=== PATIENT | male | born 1960 | race Caucasian/White ===

== ENCOUNTER 2017-12-17 05:34 | Observation (INO) | payer BC ==
[2017-12-17 06:04] LABS: Basophils # (A) 0.1 k/uL (0-0.2); Basophils % (A) 1 %; Eosinophils # (A) 0.2 k/uL (0-0.7); Eosinophils % (A) 2 %; HCT 44.6 % (39.0-53.0); HGB 15.6 gm/dL (13.0-17.5); Lymphocytes # (A) 2.3 k/uL (1.0-4.8); Lymphocytes % (A) 26 %; MCH 32.7 pg (25.0-35.0); MCV 93.3 fL (80.0-100.0); Mean Platelet Volume 6.5; Monocytes # (A) 0.4 k/uL (0-1.0); Monocytes % (A) 5 %; Neutrophils # (A) 5.8 k/uL (1.3-7.7); Neutrophils % (A) 64 %; Platelet Count 290 k/uL (150-450); RBC 4.78 m/uL (4.30-5.90); RDW 11.9 % (11.5-15.5)
[2017-12-17 06:13] LABS: Partial Thromboplastin Time 24.8 sec (22.0-30.0); Prothrombin Time 9.9 sec (9.0-12.0)
[2017-12-17 06:17] LABS: ALT 79 U/L (21-72); AST 57 U/L (17-59); Albumin 4.4 g/dL (3.5-5.0); Alkaline Phosphatase 120 U/L (38-126); Anion Gap 14 mmol/L; Blood Urea Nitrogen 11 mg/dL (9-20); Calcium 9.9 mg/dL (8.4-10.2); Carbon Dioxide 24 mmol/L (22-30); Chloride 104 mmol/L (98-107); Glucose 118 mg/dL (74-99); Magnesium 2.1 mg/dL (1.6-2.3); Potassium 4.5 mmol/L (3.5-5.1); Sodium 142 mmol/L (137-145); Total Bilirubin 0.5 mg/dL (0.2-1.3); Total Protein 7.3 g/dL (6.3-8.2)
[2017-12-17 06:28] LABS: Creatine Kinase 92 U/L (55-170)
[2017-12-17 06:41] LABS: Creatine Kinase MB 1.1 ng/mL (0.0-2.4); Troponin I <0.012 ng/mL (0.000-0.034)
--- NOTE | 2017-12-17 06:48 | ED ---
General Adult HPI - General Chief complaint: Chest Pain Stated complaint: chest pain,dizziness,headache Time Seen by Provider: 12/17/17 05:53 Source: patient, family, RN notes reviewed, old records reviewed Mode of arrival: ambulatory Limitations: no limitations - History of Present Illness Initial comments: This is a 57-year-old male patient. Patient multiple as pain, secondary patient complaining of vertigo. He states he woke with chest pain last night and have vertigo again this morning. Patient does have history of chronic chest pain right-sided secondary to prolonged benign bone tumor. Patient states he woke with chest pain last night and awoke with dizziness and spinning may try to get her bedding or the bathroom, both symptoms have persisted. He feels very uneasy when he walks and feels like his equilibrium is off. Patient also is complaining of chest pain - Related Data Home Medications Medication Instructions Recorded Confirmed Furosemide [Lasix] 40 mg PO DAILY 12/17/17 12/17/17 HYDROcodone/APAP 10-325MG [[place] 1 tab PO Q6HR PRN 12/17/17 12/17/17 10-325] Lisinopril 40 mg PO DAILY 12/17/17 12/17/17 Allergies Allergy/AdvReac Type Severity Reaction Status Date / Time No Known Allergies Allergy Verified 12/17/17 07:04 Review of Systems ROS Statement: Those systems with pertinent positive or pertinent negative responses have been documented in the HPI. ROS Other: All systems not noted in ROS Statement are negative. Past Medical History Past Medical History: Hypertension Additional Past Medical History / Comment(s): right lung mass, lower back pain History of Any Multi-Drug Resistant Organisms: None Reported Past Surgical History: Back Surgery, Tonsillectomy Additional Past Surgical History / Comment(s): 5th rib removed right side mass Past Psychological History: No Psychological Hx Reported Smoking Status: Current every day smoker Past Alcohol Use History: Occasional Past Drug Use History: None Reported General Exam Limitations: no limitations General appearance: alert, in no apparent distress Head exam: Present: atraumatic, normocephalic, normal inspection Eye exam: Present: normal appearance, PERRL, EOMI. Absent: scleral icterus, conjunctival injection, periorbital swelling ENT exam: Present: normal exam, mucous membranes moist Neck exam: Present: normal inspection. Absent: tenderness, meningismus, lymphadenopathy Respiratory exam: Present: normal lung sounds bilaterally. Absent: respiratory distress, wheezes, rales, rhonchi, stridor Cardiovascular Exam: Present: regular rate, normal rhythm, normal heart sounds. Absent: systolic murmur, diastolic murmur, rubs, gallop, clicks GI/Abdominal exam: Present: soft, normal bowel sounds. Absent: distended, tenderness, guarding, rebound, rigid Extremities exam: Present: normal inspection, full ROM, normal capillary refill. Absent: tenderness, pedal edema, joint swelling, calf tenderness Back exam: Present: normal inspection Neurological exam: Present: alert, oriented X3, CN II-XII intact Psychiatric exam: Present: normal affect, normal mood Skin exam: Present: warm, dry, intact, normal color. 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 ] Respiratory 18 18 Rate Blood Pressure 219/109 152/80 O2 Sat by Pulse 98 96 Oximetry EKG Findings - EKG Comments: EKG Findings:: EKG shows normal sinus rhythm rate of 82, VT 174, QRS 90, QTc 441 Medical Decision Making - Lab Data Result diagrams: 12/17/17 05:40 12/17/17 05:40 Lab Results 12/17/17 12/17/17 12/17/17 Range/Units 05:40 05:40 05:40 WBC 9.0 (3.8-10.6) k/uL RBC 4.78 (4.30-5.90) m/uL Hgb 15.6 (13.0-17.5) gm/dL Hct 44.6 (39.0-53.0) % MCV 93.3 (80.0-100.0) fL MCH 32.7 (25.0-35.0) pg MCHC 35.0 (31.0-37.0) g/dL RDW 11.9 (11.5-15.5) % Plt Count 290 (150-450) k/uL Neutrophils % 64 % Lymphocytes % 26 % Monocytes % 5 % Eosinophils % 2 % Basophils % 1 % Neutrophils # 5.8 (1.3-7.7) k/uL Lymphocytes # 2.3 (1.0-4.8) k/uL Monocytes # 0.4 (0-1.0) k/uL Eosinophils # 0.2 (0-0.7) k/uL Basophils # 0.1 (0-0.2) k/uL PT (9.0-12.0) sec INR (<1.2) APTT (22.0-30.0) sec Sodium 142 (137-145) mmol/L Potassium 4.5 (3.5-5.1) mmol/L Chloride 104 (98-107) mmol/L Carbon Dioxide 24 (22-30) mmol/L Anion Gap 14 mmol/L BUN 11 (9-20) mg/dL Creatinine 0.77 (0.66-1.25) mg/dL Est GFR (CKD-EPI)AfAm >90 (>60 ml/min/1.73 sqM) Est GFR (CKD-EPI)NonAf >90 (>60 ml/min/1.73 sqM) Glucose 118 H (74-99) mg/dL Calcium 9.9 (8.4-10.2) mg/dL Magnesium 2.1 (1.6-2.3) mg/dL Total Bilirubin 0.5 (0.2-1.3) mg/dL AST 57 (17-59) U/L ALT 79 H (21-72) U/L Alkaline Phosphatase 120 (38-126) U/L Total Creatine Kinase 92 (55-170) U/L CK-MB (CK-2) 1.1 (0.0-2.4) ng/mL CK-MB (CK-2) Rel Index 1.2 Troponin I <0.012 (0.000-0.034) ng/mL Total Protein 7.3 (6.3-8.2) g/dL Albumin 4.4 (3.5-5.0) g/dL 12/17/17 Range/Units 05:40 WBC (3.8-10.6) k/uL RBC (4.30-5.90) m/uL Hgb (13.0-17.5) gm/dL Hct (39.0-53.0) % MCV (80.0-100.0) fL MCH (25.0-35.0) pg MCHC (31.0-37.0) g/dL RDW (11.5-15.5) % Plt Count (150-450) k/uL Neutrophils % % Lymphocytes % % Monocytes % % Eosinophils % % Basophils % % Neutrophils # (1.3-7.7) k/uL Lymphocytes # (1.0-4.8) k/uL Monocytes # (0-1.0) k/uL Eosinophils # (0-0.7) k/uL Basophils # (0-0.2) k/uL PT 9.9 (9.0-12.0) sec INR 1.0 (<1.2) APTT 24.8 (22.0-30.0) sec Sodium (137-145) mmol/L Potassium (3.5-5.1) mmol/L Chloride (98-107) mmol/L Carbon Dioxide (22-30) mmol/L Anion Gap mmol/L BUN (9-20) mg/dL Creatinine (0.66-1.25) mg/dL Est GFR (CKD-EPI)AfAm (>60 ml/min/1.73 sqM) Est GFR (CKD-EPI)NonAf (>60 ml/min/1.73 sqM) Glucose (74-99) mg/dL Calcium (8.4-10.2) mg/dL Magnesium (1.6-2.3) mg/dL Total Bilirubin (0.2-1.3) mg/dL AST (17-59) U/L ALT (21-72) U/L Alkaline Phosphatase (38-126) U/L Total Creatine Kinase (55-170) U/L CK-MB (CK-2) (0.0-2.4) ng/mL CK-MB (CK-2) Rel Index Troponin I (0.000-0.034) ng/mL Total Protein (6.3-8.2) g/dL Albumin (3.5-5.0) g/dL Critical Care Time Critical Care Time: Yes Total Critical Care Time: 31 Disposition Clinical Impression: Chest pain Disposition: ADMITTED IP TO THIS HOSP Condition: Fair Instructions: Chest Pain (ED) Is patient prescribed a controlled substance at d/c from ED?: No Referrals: Florina Camacho MD [Primary Care Provider] - 1-2 days
[2017-12-17] MEDS ORDERED: RX INFO: IV CONTRAST WAS GIVEN 1 EACH MISC MISCELLANE PRN (07:03)
--- NOTE | 2017-12-17 07:03 | XR ---
EXAM: XR Chest, 2 Views CLINICAL HISTORY: 57-year-old male with chest pain Reason: Chest Pain TECHNIQUE: Frontal and lateral views of the chest. COMPARISON: No relevant prior studies available. FINDINGS: Lungs: There is opacification involving the right middle lobe with questionable subtle right perihilar opacities noted in the lateral projection. Pleural space: No large pleural effusion suggested. No pneumothorax. Heart: Unremarkable. No cardiomegaly. Mediastinum: As above. The left mediastinum is unremarkable. Bones/joints: Degenerative changes of the thoracic spine. Other findings: There is a 3.5 cm long tubular density with a diameter of 2 mm overlying the mid thoracic vertebral bodies as of uncertain clinical significance. IMPRESSION: There is opacification involving the right middle lobe with questionable subtle right perihilar opacities noted in the lateral projection. This is of uncertain chronicity and primary considerations include an underlying mass lesion versus infection. Please correlate clinically. No large pleural effusion suggested in the lateral projection.
--- NOTE | 2017-12-17 07:47 | CT ---
EXAMINATION TYPE: CT brain wo con DATE OF EXAM: 12/17/2017 COMPARISON: NONE HISTORY: dizziness CT DLP: 1201 mGycm. Automated Exposure Control for Dose Reduction was Utilized. TECHNIQUE: CT scan of the head is performed without contrast. FINDINGS: There is no acute intracranial hemorrhage, mass effect, or midline shift identified. No s uspicious extra-axial fluid collection. Mild atherosclerosis is seen of the intracranial vasculature. The ventricles and sulci are within normal limits in size. 8mm mucosal retention cyst is seen withi n the right maxillary sinus. The globes are intact and the remaining visualized sinuses are clear. IMPRESSION: No acute intracranial process.
[2017-12-17] MEDS ORDERED: HEPARIN SODIUM,PORCINE 5,000 UNIT/ML 1 ML VIAL IV PRN (07:49)
[2017-12-17] MEDS ORDERED: ASPIRIN 81 MG PO STA (07:49)
[2017-12-17] MEDS ORDERED: HEPARIN SODIUM,PORCINE 5,000 UNIT/ML 1 ML VIAL IV ONE (07:49)
[2017-12-17] MEDS ORDERED: NITROGLYCERIN SL TABS 0.4 MG TAB SUBLINGUAL PRN (07:49)
[2017-12-17] MEDS ORDERED: cloNIDine HCL 0.1 MG TAB PO PRN (07:55)
--- NOTE | 2017-12-17 07:55 | CT ---
EXAMINATION TYPE: CT angio chest DATE OF EXAM: 12/17/2017 COMPARISON: Biopsy dated 09/29/2011. HISTORY: Chest pain and dizziness CT DLP: 543 mGycm. Automated Exposure Control for Dose Reduction was Utilized. CONTRAST: CTA scan of the thorax is performed with IV Contrast, patient injected with 100 mL of Isovue 370, pul monary embolism protocol. MIP Images are created on CT scanner and reviewed. FINDINGS: LUNGS: Small blebs and atelectasis are seen adjacent to the known invasive right chest wall mass with mass effect upon the right lung resulting in volume loss and mass effect upon the right atrium. Mult ifocal subsegmental atelectasis is seen with no pulmonary mass identified. No focal consolidation ple ural effusion or pulmonary vascular congestion are seen. The tracheobronchial tree is patent. MEDIASTINUM: There is satisfactory enhancement of the pulmonary artery and its branches, there is no CT evidence for pulmonary embolism. There are no greater than 1 cm hilar or mediastinal lymph nodes. No cardiomegaly or pericardial effusion is seen. OTHER: Approximately 10.5 x 16.7 cm peripherally and partially centrally calcified right chest wall m ass appearing to be arising from the fifth right rib laterally demonstrates osseous destruction and i ntrathoracic invasion with mass effect upon the right atrium. Additionally there is aggressive appear ing focal pleural thickening with right fourth posterior rib lysis and expansion of the proximal post erior fourth right rib. Posterior fifth right rib is absent, also likely from pathologic lysis. Liver is diffusely hypoattenuated most commonly related to hepatic steatosis. IMPRESSION: 1. No evidence of pulmonary embolus. 2. Large right chest wall mass measuring up to 16.7 cm with mass effect upon the right lung and media stinum, particularly the right atrium. There is additionally osseous lysis and multifocal pleural thi ckening. 2. Multifocal atelectasis without CT findings to suggest pneumonia. 3. Hepatic steatosis.
[2017-12-17] MEDS ORDERED: HEPARIN SODIUM,PORCINE/D5W PMX 25,000 UNIT in DEXTROSE/WATER 1 500ML.BAG IV SCH (08:00)
[2017-12-17] MEDS: MORPHINE SULFATE 4 MG/ML SYRINGE IV PRN ×2 (08:46→09:34)
[2017-12-17] MEDS ORDERED: NICOTINE 21MG/24HR PATCH TRANSDERM STA (08:54)
[2017-12-17 09:23] VITALS: RESP 18
[2017-12-17] MEDS ORDERED: HYDROcodone/APAP 10-325MG 1 EACH TAB PO PRN (09:46)
[2017-12-17] MEDS ORDERED: FUROSEMIDE 40 MG TAB PO SCH (10:00)
[2017-12-17] MEDS ORDERED: LISINOPRIL 20 MG TAB PO SCH (10:00)
[2017-12-17] MEDS ORDERED: MORPHINE ORAL SOLN 10 MG/5 ML CUP PO PRN (11:08)
--- NOTE | 2017-12-17 12:11 | P.HPIM ---
History of Present Illness H&P Date: 12/17/17 Chief Complaint: Dizziness, chest pain This is a 57-year-old male patient of Dr. 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 Patient gives history that he got up out of bed around 11 PM last night to go to bathroom and was very lightheaded without dizziness. He had hang onto furniture /wall in order to walk. He got up again at 3:30 in the morning and symptoms were even worse. He denies any recent upper respiratory infection, ear infection, bronchitis. He states he has chronic right-sided chest pain related to the fibrodysplasia area and he relates that Dr. Camacho was concerned a couple years ago that this mass in his chest/rib was causing pressure on his heart. He has also been having a "little" pain in the left chest that initially was not concerned about this. Patient states he has been taking his blood pressure medications as directed. He came into [facility] emergency center for evaluation. His initial blood pressure was 219/109. EKG was in normal sinus. CBC, electrolytes were within normal limits. Creatinine was 0.77. ALT 79. Glucose was 118 and patient has no history of diabetes. Troponin was negative at 0.012. CT of the brain was negative. CTA of the chest was negative for pulmonary embolism. There is a large right chest wall mass measuring up to 16.7 cm with mass effect upon the right lung and mediastinum particular in the right atrium. There is additional osseous lysis and multifocal pleural thickening. Multifocal atelectasis without CT finding pneumonia. Hepatic steatosis. Patient was started on full strength aspirin, heparin drip, morphine and sublingual nitroglycerin and placed in the observation unit where a consult was placed with cardiology. Regarding hypertension, clonidine was added as needed. Patient also has significant history for smoking greater than 2 packs per day for more than 30 years and also drinking a pint of liquor per day for more than 30 years. He does have a family history of brother with [place] in his 30s and his father at age 63 from a myocardial infarction. Review of Systems All systems: negative Constitutional: Denies anorexia, Denies chills, Denies fatigue, Denies fever, Denies poor appetite, Denies weight loss Eyes: denies blurred vision, denies pain Ears, nose, mouth and throat: Denies dysphagia, Denies headache, Denies mouth pain, Denies sore throat, Denies vertigo Cardiovascular: Reports chest pain, Reports lightheadedness, Denies decreased exercise tolerance, Denies dyspnea on exertion, Denies edema, Denies leg edema, Denies shortness of breath, Denies syncope Respiratory: Denies cough, Denies cough with sputum, Denies dyspnea, Denies excessive sputum, Denies hemoptysis, Denies home oxygen, Denies wheezing Gastrointestinal: Denies abdominal pain, Denies diarrhea, Denies nausea, Denies vomiting Genitourinary: Denies dysuria Musculoskeletal: Reports gait dysfunction, Denies frequent falls, Denies myalgias Integumentary: Denies pruritus, Denies rash Neurological: Denies numbness, Denies weakness Psychiatric: Denies anxiety, Denies depression Endocrine: Denies fatigue, Denies weight change Past Medical History Past Medical History: Hypertension Additional Past Medical History / Comment(s): Fibrodysplasia of the right affecting his right fifth rib with mass at T5 which is been surgically removed and a second mass within his chest wall, chronic lumbar pain with bilateral lower extremity neuropathy, diverticulitis History of Any Multi-Drug Resistant Organisms: None Reported Past Surgical History: Back Surgery, Tonsillectomy Additional Past Surgical History / Comment(s): 1976 5th rib removed in 1975 for fibrodysplasia, mass removed from T5 in 2007 that was causing deterioration of the bone due to fibrodysplasia, left ring finger surgery with pins Past Anesthesia/Blood Transfusion Reactions: No Reported Reaction Past Psychological History: No Psychological Hx Reported Smoking Status: Current every day smoker Past Alcohol Use History: Abuse, Heavy Additional Past Alcohol Use History / Comment(s): Patient is a smoker of greater than 2 packs per day for more than 30 years. He drinks a pint of alcohol every day for more than 30 years. He denies any marijuana or street drug use. He is and lives at home with his . Past Drug Use History: None Reported - Past Family History Father Family Medical History: Coronary Artery Disease (CAD), Myocardial Infarction ([place] ) Additional Family Medical History / Comment(s): Father at age 63 from myocardial infarction. Brother(s) Family Medical History: Myocardial Infarction ([place]) Additional Family Medical History / Comment(s): Patient has 1 brother that had [place] in his 30s. Daughter(s) Family Medical History: Hypertension Mother Family Medical History: Hypertension Additional Family Medical History / Comment(s): Mother is alive with hypertension and otherwise no major medical problems. Medications and Allergies Home Medications Medication Instructions Recorded Confirmed Type Furosemide [Lasix] 40 mg PO DAILY 12/17/17 12/17/17 History HYDROcodone/APAP 10-325MG [[place] 1 tab PO Q6HR PRN 12/17/17 12/17/17 History 10-325] Lisinopril 40 mg PO DAILY 12/17/17 12/17/17 History Allergies Allergy/AdvReac Type Severity Reaction Status Date / Time No Known Allergies Allergy Verified 12/17/17 07:04 Physical Exam Vitals: Vital Signs Temp Pulse Pulse Pulse Resp BP BP 12/17/17 09:20 97.9 F 70 18 180/84 12/17/17 08:38 98.0 F 71 16 168/79 12/17/17 07:07 60 18 152/80 12/17/17 05:50 79 12/17/17 05:38 97.7 F 94 18 219/109 Pulse Ox 12/17/17 09:20 97 12/17/17 08:38 98 12/17/17 07:07 96 12/17/17 05:50 12/17/17 05:38 98 Intake and Output 12/16/17 12/17/17 12/17/17 22:59 06:59 14:59 Other: Voiding Method Toilet Weight 122.47 kg 130.4 kg Gen: This is a morbidly obese 57-year-old male patient. He is in bed and appears to be comfortable and in no acute distress. HEENT: Head is atraumatic, normocephalic. Pupils equal, round. Sclerae is anicteric. NECK: Supple. No JVD. No lymphadenopathy. No thyromegaly. LUNGS: Clear to auscultation. No wheezes or rhonchi. No intercostal retractions. HEART: Regular rate and rhythm. No murmur. ABDOMEN: Morbidly obese. Soft. Bowel sounds are present. No masses. No tenderness. EXTREMITIES: No pedal edema. No calf tenderness. NEUROLOGICAL: Patient is awake, alert and oriented x3. Cranial nerves 2 through 12 are grossly intact. Results CBC & Chem 7: 12/17/17 05:40 12/17/17 05:40 Labs: Abnormal Lab Results - Last 24 Hours (Table) 12/17/17 Range/Units 05:40 Glucose 118 H (74-99) mg/dL ALT 79 H (21-72) U/L Thrombosis Risk Factor Assmnt - DVT/VTE Prophylaxis DVT/VTE Prophylaxis: Pharmacologic Prophylaxis ordered - Choose All That Apply Each Factor Represents 1 point: Age 41-60 years, Obesity (BMI >25) Other Risk Factors: No Other congenital or acquired thrombophilia - If yes, enter type in comment: No Thrombosis Risk Factor Assessment Total Risk Factor Score: 2 Thrombosis Risk Factor Assessment Level: Low Risk Assessment and Plan Plan: 1. Lightheadedness along with left-sided chest pain that is new. Patient denies feeling dizzy during this. Initial troponin is negative. Echocardiogram will be ordered, serial troponins, cardiology consult. Patient is currently on heparin drip and full strength aspirin. Lipid panel ordered for morning. 2. History of fibroid dysplasia status post removal of the right fifth rib and removal of a mass at the T5 region with a known large mass measuring up to 16.7 cm along the right lung and mediastinum. Patient has been rejected by [facility] for any surgical intervention. 3. Uncontrolled hypertension. Patient started on clonidine along with his Lasix and lisinopril. 4. Alcohol abuse disorder. Monitor for DTs. Anticipate discharge in the next 24 hours. 5. Tobacco use and dependence. Discussed need for smoking cessation. Patient placed on nicotine patch. 6. Chronic back pain and bilateral lower extremity neuropathy. 7. DVT prophylaxis. Patient is on heparin drip. 8. GI prophylaxis. Pepcid. Patient placed as an observation status. Discharge plan: Return home Impression and plan of care have been directed as dictated by the signing physician. Ai Ibarra nurse practitioner acting as scribe for signing physician.
[2017-12-17 12:40] LABS: Creatine Kinase 83 U/L (55-170)
[2017-12-17 12:52] LABS: Creatine Kinase MB 1.1 ng/mL (0.0-2.4); Troponin I <0.012 ng/mL (0.000-0.034)
--- NOTE | 2017-12-17 14:23 | ECHOF ---
Referral Reason:lvfunction MEASUREMENTS -------- HEIGHT: 175.3 cm WEIGHT: 130.2 kg BP: RVIDd: 2.7 cm (< 3.3) IVSd: 1.3 cm (0.6 - 1.1) LVIDd: 4.6 cm (3.9 - 5.3) LVPWd: 1.3 cm (0.6 - 1.1) IVSs: 1.6 cm LVIDs: 3.7 cm LVPWs: 1.5 cm LA Diam: 3.0 cm (2.7 - 3.8) Ao Diam: 3.8 cm (2.0 - 3.7) AV Cusp: 2.0 cm (1.5 - 2.6) LA Diam: 3.8 cm (2.7 - 3.8) MV EXCURSION: 20.607 mm (> 18.000) MV EF SLOPE: 143 mm/s (70 - 150) EPSS: 0.8 cm MV E Jean-Paul: 0.66 m/s MV DecT: 273 ms MV A Jean-Paul: 0.59 m/s MV E/A Ratio: 1.11 RAP: 5.00 mmHg RVSP: 10.99 mmHg FINDINGS -------- Sinus rhythm. Morbid Obesity The left ventricular size is normal. There is mild concentric left ventricular hypertrophy. Overa ll left ventricular systolic function is low-normal with, an EF between 50 - 55 %. Inferior Hypokin esis The right ventricle is normal in size. The left atrial size is normal. The right atrial size is normal. 5.0mg OF [place] UTLIZED: 2 OR MORE WALL SEGMENTS NOT VISUALIZED. The aortic valve is trileaflet, and appears structurally normal. No aortic stenosis or regurgitation. Mild mitral regurgitation is present. Mild tricuspid regurgitation present. There is no evidence of pulmonary hypertension. The right v entricular systolic pressure, as measured by Doppler, is 10.99mmHg. Trace/mild (physiologic) pulmonic regurgitation. The aortic root size is normal. There is no pericardial effusion. CONCLUSIONS -------- 1. Morbid Obesity 2. The left ventricular size is normal. 3. There is mild concentric left ventricular hypertrophy. 4. Overall left ventricular systolic function is low-normal with, an EF between 50 - 55 %. 5. Inferior Hypokinesis 6. 5.0mg OF [place] UTLIZED: 2 OR MORE WALL SEGMENTS NOT VISUALIZED. 7. The aortic valve is trileaflet, and appears structurally normal. No aortic stenosis or regurgitati on. 8. Mild mitral regurgitation is present. 9. Mild tricuspid regurgitation present. 10. There is no evidence of pulmonary hypertension. 11. The right ventricular systolic pressure, as measured by Doppler, is 10.99mmHg. 12. Trace/mild (physiologic) pulmonic regurgitation. 13. The aortic root size is normal. 14. There is no pericardial effusion. [employer] WORKER: Nelly Mccormack RDCS
[2017-12-17 16:18] VITALS: BP 158/96; PULSE 74; TEMP 97.9
[2017-12-17 16:36] LABS: Creatine Kinase 84 U/L (55-170)
[2017-12-17 16:49] LABS: Troponin I <0.012 ng/mL (0.000-0.034)
[2017-12-18] MEDS ORDERED: ASPIRIN 325 MG TAB PO SCH (09:00)
== END 2017-12-17 17:15 | disposition left against medical advice (07) ==
LOC: EC 05:34 → 3OBS 07:49
PROVIDERS: ADMIT Internal Medicine Geriatric Medicine; ATTEND Internal Medicine Geriatric Medicine
DX: R07.89 Other chest pain (principal); R42 Dizziness and giddiness; I10 Essential (primary) hypertension; M85.08 Fibrous dysplasia (monostotic), other site; R91.8 Other nonspecific abnormal finding of lung field; G89.29 Other chronic pain; M54.5 Low back pain; G57.93 Unspecified mononeuropathy of bilateral lower limbs; K57.90 Diverticulosis of intestine, part unspecified, without perforation or abscess without bleeding; F17.200 Nicotine dependence, unspecified, uncomplicated; J98.11 Atelectasis; K76.0 Fatty (change of) liver, not elsewhere classified; F17.210 Nicotine dependence, cigarettes, uncomplicated; F10.10 Alcohol abuse, uncomplicated; E66.01 Morbid (severe) obesity due to excess calories; Z68.41 Body mass index [BMI] 40.0-44.9, adult; Z82.49 Family history of ischemic heart disease and other diseases of the circulatory system; Z79.899 Other long term (current) drug therapy
CPT/HCPCS: 99291 ×2; 96374 ×2; 96375 ×2; 96376 ×3; 36415; 93005; 93306; 80053; 82550; 82553; 83735; 84484; 85025; 85610; 85730; 71046; 70450; 71275; G0378; S4990; J2270; J1644 ×2; Q9950; Q9967

== ENCOUNTER 2019-08-21 00:43 | Emergency (ER) | payer BC ==
[2019-08-21 00:53] VITALS: TEMP 97.9
[2019-08-21] MEDS ORDERED: HYDROmorphone 1 MG/ML 1 ML SYRINGE IVP STA ×4 (01:43→05:50)
[2019-08-21] MEDS ORDERED: LABETALOL 5 MG/ML VIAL MDV IVP STA (01:44)
[2019-08-21 02:08] LABS: Basophils # (A) 0.4 k/uL (0-0.2); Basophils % (A) 3 %; Eosinophils # (A) 0.3 k/uL (0-0.7); Eosinophils % (A) 2 %; HCT 47.3 % (39.0-53.0); Lymphocytes # (A) 3.4 k/uL (1.0-4.8); Lymphocytes % (A) 25 %; MCH 31.8 pg (25.0-35.0); MCHC 33.8 g/dL (31.0-37.0); Monocytes # (A) 0.7 k/uL (0-1.0); Monocytes % (A) 5 %; Neutrophils # (A) 8.9 k/uL (1.3-7.7); Neutrophils % (A) 64 %; Platelet Count 311 k/uL (150-450); RBC 5.03 m/uL (4.30-5.90); WBC 13.9 k/uL (3.8-10.6)
[2019-08-21 02:22] LABS: ALT 51 U/L (4-49); AST 36 U/L (17-59); African American GFR (CKD) >90 (>60 ml/min/1.73 sqM); Albumin 4.2 g/dL (3.5-5.0); Alkaline Phosphatase 115 U/L (38-126); Anion Gap 11 mmol/L; Blood Urea Nitrogen 13 mg/dL (9-20); Calcium 9.4 mg/dL (8.4-10.2); Carbon Dioxide 19 mmol/L (22-30); Chloride 107 mmol/L (98-107); Glucose 91 mg/dL (74-99); Magnesium 2.1 mg/dL (1.6-2.3); Non-African American GFR(CKD) >90 (>60 ml/min/1.73 sqM); Potassium 4.9 mmol/L (3.5-5.1); Sodium 137 mmol/L (137-145); Total Bilirubin 0.6 mg/dL (0.2-1.3); Total Protein 7.4 g/dL (6.3-8.2)
[2019-08-21] MEDS ORDERED: methylPREDNISolone SOD SUCCI 125 MG/2 ML VIAL IV STA (02:54)
--- NOTE | 2019-08-21 03:06 | CT ---
EXAMINATION TYPE: CT angio abd aorta w/Runoff DATE OF EXAM: 08/21/2019 COMPARISON: None HISTORY: Patient presents with bilateral leg pain and numbness. CT DLP: 3494.2 mGycm Automated exposure control for dose reduction was used. CONTRAST: Performed with IV Contrast, patient injected with 100mL mL of Isovue 370. Multiple axial sections were obtained from the thoracic inlet to the mid pelvis without contrast. Mul tiple axial sections were obtained from the aortic arch to the bottom of the feet with intravenous co ntrast. There are 3-D post processed images. There is a 13 x 8 cm mass involving the anterior right midlung field extending through the chest wall . There is peripheral calcification and patchy internal calcification. Heart size is normal. There is no pericardial effusion. There no hilar masses. There is no mediastina l adenopathy. Thoracic aorta appears intact without evidence of aneurysm or dissection. There is no h emodynamic stenosis. There is arterial flow in the celiac artery and superior mesenteric artery which appear widely patent . There is bilateral patency of the renal arteries which appear fairly normal. There is no evidence o f renal artery stenosis. There is arterial flow in the iliac and femoral arteries bilaterally. There is minimal plaque formati on. I see no evidence of iliac artery hemodynamic stenosis. There is bilateral arterial flow in the s uperficial femoral and the profunda femoris arteries. There is arterial flow bilaterally in the popli teal arteries. I see no evidence of femoral or popliteal artery hemodynamic stenosis. There is bilateral arterial flow in the tibial arteries. There is arterial flow in the anterior and p osterior tibial arteries bilaterally. There is peroneal artery flow. There is arterial flow at the ankles involving both posterior tibial arteries. There is bilateral art erial flow in the dorsalis pedis arteries. Bladder distends smoothly. There are numerous sigmoid diverticula without evidence of diverticulitis. Appendix appears normal. There is no evidence of a bowel obstruction. There is no mesenteric edema. There is no ascites or free air. Thoracic and lumbar vertebra have normal alignment. There is no compression fracture. There is some s purring in the thoracic spine. IMPRESSION: Negative CT angiogram of the chest abdomen and pelvis with runoff. No evidence of any hemodynamic colton nosis. No evidence of arterial aneurysm or dissection. There is bilateral arterial flow in the anteri or and posterior tibial arteries at the ankles. Colonic diverticulosis without diverticulitis. Normal appendix. Large calcified right anterior chest wall mass extending into the right middle lobe has peripheral fa t density. This has soft tissue central density. Clinical significance and origin is not clear. This is most likely arising from the chest wall and not from the lung. Mass appears to show benign behavio r with stable appearance compared to CT scan of 12/17/2017.
[2019-08-21 03:17] LABS: Appearance,Urine Clear (Clear); Bilirubin,Urine Negative (Negative); Blood,Urine Negative (Negative); Color,Urine Yellow; Glucose,Urine (UA) Negative (Negative); Ketones,Urine Negative (Negative); Leukocyte Esterase,Urine Negative (Negative); Nitrite,Urine Negative (Negative); PH, Urine 5.5 (5.0-8.0); Protein,Urine Negative (Negative); Specific Gravity,Urine 1.045 (1.001-1.035); Urobilinogen,Urine <2.0 mg/dL (<2.0)
[2019-08-21] MEDS ORDERED: DIAZEPAM 5 MG/ML 2 ML INJ IVP STA (03:40)
--- NOTE | 2019-08-21 05:19 | ED ---
General Adult HPI - General Chief complaint: Extremity Injury, Lower Stated complaint: Bilateral Leg Numbness Time Seen by Provider: 08/21/19 00:58 Source: patient, family Mode of arrival: wheelchair Limitations: no limitations - History of Present Illness Initial comments: This patient is a 59-year-old man with history of chronic mid to low back pain. The patient states that he had worsening of the pain starting around 9 PM. The patient states he was feeling a little different from last time and that it seemed to worsen with walking. He states that after that he also felt like he lost strength is bilateral legs. Patient denies numbness or saddle anesthesia. He states that he has not had any change in bladder or bowel function. The patient did have an MRI at [facility] where his surgeon was and he was told that there was no further surgical intervention. No fever or chills. No history of IVDA. -: hour(s) Location: back, left, right, lower extremity Radiation: distal Quality: aching Consistency: constant Improves with: none Worsens with: movement Associated Symptoms: weakness - Related Data Home Medications Medication Instructions Recorded Confirmed Furosemide [Lasix] 40 mg PO DAILY 12/17/17 12/17/17 HYDROcodone/APAP 10-325MG [[place] 1 tab PO Q6HR PRN 12/17/17 12/17/17 10-325] Lisinopril 40 mg PO DAILY 12/17/17 12/17/17 Allergies Allergy/AdvReac Type Severity Reaction Status Date / Time No Known Allergies Allergy Verified 08/21/19 00:53 Review of Systems ROS Statement: Those systems with pertinent positive or pertinent negative responses have been documented in the HPI. ROS Other: All systems not noted in ROS Statement are negative. Constitutional: Denies: fever, chills Respiratory: Denies: cough, dyspnea Cardiovascular: Denies: chest pain, palpitations, edema Gastrointestinal: Denies: abdominal pain, nausea, vomiting, diarrhea, constipation Genitourinary: Denies: dysuria, hematuria, testicular pain Musculoskeletal: Reports: as per HPI, back pain Skin: Denies: rash Neurological: Reports: weakness (Bilateral lower extremities). Denies: headache, numbness, paresthesias Past Medical History Past Medical History: Hypertension Additional Past Medical History / Comment(s): right lung mass, lower back pain History of Any Multi-Drug Resistant Organisms: None Reported Past Surgical History: Back Surgery, Tonsillectomy Additional Past Surgical History / Comment(s): 5th rib removed right side mass Past Anesthesia/Blood Transfusion Reactions: No Reported Reaction Past Psychological History: No Psychological Hx Reported Smoking Status: Current every day smoker Past Alcohol Use History: Occasional Past Drug Use History: None Reported - Past Family History Father Family Medical History: Coronary Artery Disease (CAD), Myocardial Infarction (NH) Additional Family Medical History / Comment(s): Father at age 63 from myocardial infarction. Brother(s) Family Medical History: Myocardial Infarction (NH) Additional Family Medical History / Comment(s): Patient has 1 brother that had NH in his 30s. Daughter(s) Family Medical History: Hypertension Mother Family Medical History: Hypertension Additional Family Medical History / Comment(s): Mother is alive with hyperte nsion and otherwise no major medical problems. General Exam Limitations: no limitations General appearance: alert, in no apparent distress Head exam: Present: atraumatic, normocephalic Eye exam: Present: normal appearance. Absent: scleral icterus, conjunctival injection Neck exam: Present: normal inspection. Absent: tenderness Respiratory exam: Present: normal lung sounds bilaterally. Absent: respiratory distress, wheezes, rales, rhonchi, stridor Cardiovascular Exam: Present: regular rate, normal rhythm, normal heart sounds. Absent: systolic murmur, diastolic murmur, rubs, gallop GI/Abdominal exam: Present: soft. Absent: distended, tenderness, guarding, rebound, mass, pulsatile mass Extremities exam: Present: normal inspection, normal capillary refill, other (Palpation of the bilateral dorsalis pedis pulses seems diminished.). Absent: tenderness, pedal edema Back exam: Present: normal inspection, paraspinal tenderness, vertebral tenderness. Absent: CVA tenderness (R), CVA tenderness (L) Neurological exam: Present: alert, motor sensory deficit (There is decreased motor symmetrically to the bilateral lower extremities), reflexes normal Skin exam: Present: warm, dry, intact, normal color. Absent: rash Course Vital Signs 08/21/19 08/21/19 08/21/19 00:50 02:26 02:30 Temperature 97.9 F Pulse Rate 89 76 Respiratory 20 18 Rate Blood Pressure 171/85 157/76 Blood Pressure 170/87 [Left Arm] Blood Pressure 181/89 [Right Arm] O2 Sat by Pulse 97 99 Oximetry 08/21/19 08/21/19 08/21/19 02:41 03:02 03:44 Temperature Pulse Rate 75 74 75 Respiratory 20 18 18 Rate Blood Pressure 158/83 154/79 157/79 Blood Pressure [Left Arm] Blood Pressure [Right Arm] O2 Sat by Pulse 97 96 95 Oximetry 08/21/19 08/21/19 04:41 06:05 Temperature Pulse Rate 71 90 Respiratory 18 20 Rate Blood Pressure 170/89 160/94 Blood Pressure [Left Arm] Blood Pressure [Right Arm] O2 Sat by Pulse 97 100 Oximetry Medical Decision Making - Medical Decision Making Patient is a 59-year-old man with chronic low back pain. On the initial exam, there was question whether the bilateral dorsalis pedis pulses were decreased and the patient was not giving satisfactory strength exam to the bilateral lower extremities, therefore the CT angiogram ordered and does reveal that there is good distal flow. The patient is also given analgesia, and was having significant improvement. Following analgesic he is able to perform the strength exam to 5 out of 5 strength bilaterally. He also was able to support her weight and take steps at bedside. I had been suggesting admission to have MRI, the patient states that he did recently have woman was told that there was no surgical intervention that would help him. The patient did request to go home following analgesia and as he is able to bear weight and walk this does seem acceptable. We discussed signs and symptoms of cauda equina and other back emergencies and he'll return should any these develop or if he is worse in anyway. - Lab Data Result diagrams: 08/21/19 01:53 08/21/19 01:53 Lab Results 08/21/19 08/21/19 08/21/19 Range/Units 01:53 01:53 01:53 WBC 13.9 H (3.8-10.6) k/uL RBC 5.03 (4.30-5.90) m/uL Hgb 16.0 (13.0-17.5) gm/dL Hct 47.3 (39.0-53.0) % MCV 94.0 (80.0-100.0) fL MCH 31.8 (25.0-35.0) pg MCHC 33.8 (31.0-37.0) g/dL RDW 12.0 (11.5-15.5) % Plt Count 311 (150-450) k/uL Neutrophils % 64 % Lymphocytes % 25 % Monocytes % 5 % Eosinophils % 2 % Basophils % 3 % Neutrophils # 8.9 H (1.3-7.7) k/uL Lymphocytes # 3.4 (1.0-4.8) k/uL Monocytes # 0.7 (0-1.0) k/uL Eosinophils # 0.3 (0-0.7) k/uL Basophils # 0.4 H (0-0.2) k/uL D-Dimer 0.27 (<0.60) mg/L FEU Sodium 137 (137-145) mmol/L Potassium 4.9 (3.5-5.1) mmol/L Chloride 107 (98-107) mmol/L Carbon Dioxide 19 L (22-30) mmol/L Anion Gap 11 mmol/L BUN 13 (9-20) mg/dL Creatinine 0.79 (0.66-1.25) mg/dL Est GFR (CKD-EPI)AfAm >90 (>60 ml/min/1.73 sqM) Est GFR (CKD-EPI)NonAf >90 (>60 ml/min/1.73 sqM) Glucose 91 (74-99) mg/dL Plasma Lactic Acid Rai (0.7-2.0) mmol/L Calcium 9.4 (8.4-10.2) mg/dL Magnesium 2.1 (1.6-2.3) mg/dL Total Bilirubin 0.6 (0.2-1.3) mg/dL AST 36 (17-59) U/L ALT 51 H (4-49) U/L Alkaline Phosphatase 115 (38-126) U/L Troponin I (0.000-0.034) ng/mL Total Protein 7.4 (6.3-8.2) g/dL Albumin 4.2 (3.5-5.0) g/dL Urine Color Urine Appearance (Clear) Urine pH (5.0-8.0) Ur Specific [place] (1.001-1.035) Urine Protein (Negative) Urine Glucose (UA) (Negative) Urine Ketones (Negative) Urine Blood (Negative) Urine Nitrite (Negative) Urine Bilirubin (Negative) Urine Urobilinogen (<2.0) mg/dL Ur Leukocyte Esterase (Negative) 08/21/19 08/21/19 08/21/19 Range/Units 01:53 02:23 02:39 WBC (3.8-10.6) k/uL RBC (4.30-5.90) m/uL Hgb (13.0-17.5) gm/dL Hct (39.0-53.0) % MCV (80.0-100.0) fL MCH (25.0-35.0) pg MCHC (31.0-37.0) g/dL RDW (11.5-15.5) % Plt Count (150-450) k/uL Neutrophils % % Lymphocytes % % Monocytes % % Eosinophils % % Basophils % % Neutrophils # (1.3-7.7) k/uL Lymphocytes # (1.0-4.8) k/uL Monocytes # (0-1.0) k/uL Eosinophils # (0-0.7) k/uL Basophils # (0-0.2) k/uL D-Dimer (<0.60) mg/L FEU Sodium (137-145) mmol/L Potassium (3.5-5.1) mmol/L Chloride (98-107) mmol/L Carbon Dioxide (22-30) mmol/L Anion Gap mmol/L BUN (9-20) mg/dL Creatinine (0.66-1.25) mg/dL Est GFR (CKD-EPI)AfAm (>60 ml/min/1.73 sqM) Est GFR (CKD-EPI)NonAf (>60 ml/min/1.73 sqM) Glucose (74-99) mg/dL Plasma Lactic Acid Rai 1.8 (0.7-2.0) mmol/L Calcium (8.4-10.2) mg/dL Magnesium (1.6-2.3) mg/dL Total Bilirubin (0.2-1.3) mg/dL AST (17-59) U/L ALT (4-49) U/L Alkaline Phosphatase (38-126) U/L Troponin I <0.012 (0.000-0.034) ng/mL Total Protein (6.3-8.2) g/dL Albumin (3.5-5.0) g/dL Urine Color Yellow Urine Appearance Clear (Clear) Urine pH 5.5 (5.0-8.0) Ur Specific [place] 1.045 H (1.001-1.035) Urine Protein Negative (Negative) Urine Glucose (UA) Negative (Negative) Urine Ketones Negative (Negative) Urine Blood Negative (Negative) Urine Nitrite Negative (Negative) Urine Bilirubin Negative (Negative) Urine Urobilinogen <2.0 (<2.0) mg/dL Ur Leukocyte Esterase Negative (Negative) Disposition Clinical Impression: Back pain Disposition: HOME SELF-CARE Condition: Fair Instructions (If sedation given, give patient instructions): Back Pain (ED) Is patient prescribed a controlled substance at d/c from ED?: Yes When asked, does pt state using other controlled substances?: No If prescribed controlled substance>3 days was MAPS reviewed?: Prescribed <3 Days If opioid is for acute pain is fill amount 7 days or less?: Yes If Rx opioid, was Start Talking consent form obtained?: Yes Referrals: Jefferson Hirsch MD [Primary Care Provider] - 1-2 days Kevin Rosenberg MD [STAFF PHYSICIAN] - 1-2 days
[2019-08-21 06:07] VITALS: BP 160/94; PULSE 90; RESP 20
== END 2019-08-21 06:07 | disposition home or self-care (01) ==
LOC: EC 00:43
DX: G89.29 Other chronic pain (principal); M54.5 Low back pain; R53.1 Weakness; I10 Essential (primary) hypertension; F17.200 Nicotine dependence, unspecified, uncomplicated; Z79.899 Other long term (current) drug therapy
CPT/HCPCS: 36415; 93005; 85379; 80053; 83605; 83735; 84484; 85025; 81003; 75635; 99284; 96374; 96375 ×3; 96376 ×3; J2930; J3360; J1170; Q9967

== ENCOUNTER → 2022-08-07 | Outpatient (CLI) | payer MEDICARE | END | disposition home or self-care (01) | LOC: LABWHC1 08:33 | PROVIDERS: ATTEND Psychiatry & Neurology Neurology | DX: Z01.812 Encounter for preprocedural laboratory examination (principal) | CPT/HCPCS: 36415; 93005 ==